=== PATIENT | female | born 1970 | race American Indian/Alaskan Native ===

== ENCOUNTER 2017-09-26 10:57 | Emergency (ER) | payer MEDICAID ==
[2017-09-26] MEDS ORDERED: TORADOL ONE (13:16)
[2017-09-26] MEDS ORDERED: TORADOL IM ONE (13:18)
[2017-09-26] MEDS ORDERED: NORCO 5/325 PO ONE (13:18)
[2017-09-26] MEDS ORDERED: CATAPRES PO ONE (13:21)
--- NOTE | 2017-09-26 13:27 | Emergency Department Report ---
HPI - General Chief Complaint: Shoulder Injury Time Seen by Provider: 09/26/17 12:55 - HPI HPI: The patient is a 47-year-old female presents for evaluation of bilateral shoulder pain. The patient reports bilateral shoulder pain for the past one week, tight and spasming in quality, moderate in severity, exacerbated with movement of the arms at the shoulder joints. She denies trauma to the shoulders, back, or neck, paresthesias, motor deficit, or other focal neurological deficit. ED Past Medical Hx - Past Medical History Hx Hypertension: Yes Hx CVA: Yes (1988) Hx Seizures: Yes Hx Psychiatric Treatment: Yes (anxiety) Hx Asthma: Yes - Surgical History Hx Cholecystectomy: Yes Additional Surgical History: BRAIN ANEURYSM. TUBAL LIGATION AND REVERSAL. PARTIAL HYSTERECTOMY - Social History Smoking Status: Never Smoker - Medications Home Medications: Home Medications Medication Instructions Recorded Confirmed Last Taken Type Gentamicin 0.3% Ophth Soln 1 drops OP Q4H #1 bottle 09/01/15 02/29/16 Unknown Rx HYDROcodone/APAP 5-325 [[place] 1 each PO Q6HR PRN #30 tablet 10/16/15 02/29/16 Unknown Rx 5/325] Mag Hydrox/Aluminum Hyd/Simeth 20 ml PO QID PRN #1 bottle 10/16/15 02/29/16 Unknown Rx [Maalox Advanced Suspension] Omeprazole [PriLOSEC] 40 mg PO QDAY #30 cap 10/16/15 02/29/16 Unknown Rx levETIRAcetam [Keppra TAB] 750 mg PO BID #60 tablet 10/16/15 02/29/16 Unknown Rx Aspirin [Aspirin BABY CHEW TAB] 81 mg PO QDAY tab.chew 03/02/16 Unknown Rx Atenolol [Tenormin] 25 mg PO DAILY #30 tab 08/11/16 Unknown Rx Cyclobenzaprine [Flexeril] 10 mg PO BID PRN #20 tablet 10/22/16 Unknown Rx Diclofenac Sodium 75 mg PO BID #20 tablet. 10/22/16 Unknown Rx Cyclobenzaprine HCl [Flexeril 5 MG 5 mg PO Q8HR PRN #15 tab 09/26/17 Unknown Rx TAB] traMADol [Ultram 50 MG tab] 50 mg PO Q6HR PRN #15 tablet 09/26/17 Unknown Rx ED Review of Systems ROS: Stated complaint: BILATERAL SHOULDER/ARM PAIN Other details as noted in HPI Constitutional: denies: fever ENT: denies: throat or neck pain Respiratory: denies: cough, shortness of breath Cardiovascular: denies: chest pain Endocrine: denies unexplained weight loss or gain Gastrointestinal: denies: abdominal pain, nausea Genitourinary: denies: dysuria Musculoskeletal: reports shoulder pain denies: leg swelling Skin: denies: rash Neurological: denies: headache Hematological/Lymphatic: denies: easy bleeding or easy bruising Psych: denies sadness or hopelessness Physical Exam - Physical Exam Vital Signs: Vital Signs 09/26/17 09/26/17 11:05 13:22 Temperature 98.1 F Pulse Rate 80 Respiratory 16 Rate Blood Pressure 152/103 Blood Pressure 184/118 [Right] O2 Sat by Pulse 96 Oximetry Physical Exam: General: well-nourished, well-developed, no acute distress Head: Normocephalic, atraumatic Eyes: normal sclera ENT: Mucous membranes are pink and moist Neck: trachea midline, neck supple, No neck stiffness, no cervical adenopathy Respiratory: Breath sounds equal bilaterally, no wheezing, rales, or rhonchi Cardio: S1 and S2 present, no murmurs, rubs, gallops, capillary refill is brisk Abdomen: Normoactive bowel sounds, soft abdomen, no tenderness Chest WALL/Back: Bilateral caudal medial trapezius and lower cervical paraspinal musculature TTP present, no midline cervical or thoracic spinous process tenderness, no spinous above findings deformity, no sensation or motor deficit in the arms or legs bilaterally, reflexes 2+ symmetric on DTR testing, distal pulses intact as well. Skin: No rash Neuro: no facial drooping, normal speech Psych: Normal affect ED Course Vital Signs 09/26/17 09/26/17 11:05 13:22 Temperature 98.1 F Pulse Rate 80 Respiratory 16 Rate Blood Pressure 152/103 Blood Pressure 184/118 [Right] O2 Sat by Pulse 96 Oximetry ED Medical Decision Making - Medical Decision Making The patient was seen and examined by myself. The patient is placed on a registered nurse cardiac telemetry and continuous pulse ox. On initial evaluation, the patient was found to be in no distress. Evaluation orders were placed. The patient is given pain medicine and antihypertensives. On reexamination the patient's blood pressure was found to decrease outside of range concerning for hypertensive emergency. The patient is stable for discharge with outpatient follow-up. The patient is given follow-up and return instructions. The patient expressed understanding and agreed with the plan. The patient is discharged in stable condition. Critical care attestation.: If time is entered above; I have spent that time in minutes in the direct care of this critically ill patient, excluding procedure time. ED Disposition Clinical Impression: Hypertensive urgency, Acute pain of both shoulders Disposition: TO HOME OR SELFCARE Is pt being admited?: No Does the pt Need Aspirin: No Condition: Stable Instructions: Muscle Strain (ED), Musculoskeletal Pain (ED), Hypertension (ED) Referrals: PRIMARY CARE, [Primary Care Provider] - 3-5 Days Time of Disposition: 13:23
[2017-09-26 14:46] VITALS: BP 137/94
== END 2017-09-26 14:55 | disposition home or self-care (01) ==
LOC: ED 10:57
DX: M25.511 Pain in right shoulder (principal); M25.512 Pain in left shoulder; I16.0 Hypertensive urgency; Z86.73 Personal history of transient ischemic attack (TIA), and cerebral infarction without residual deficits; R53.1 Weakness; F41.9 Anxiety disorder, unspecified; J45.909 Unspecified asthma, uncomplicated; Z88.8 Allergy status to other drugs, medicaments and biological substances
CPT/HCPCS: 96372; 99283; J1885

== ENCOUNTER 2017-11-04 12:04 | Emergency (ER) | payer MEDICAID ==
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
[2017-11-04] MEDS ORDERED: DELTASONE PO ONE (17:32)
[2017-11-04 17:58] VITALS: BP 156/102
== END 2017-11-04 17:58 | disposition home or self-care (01) ==
LOC: ED 12:04
DX: M54.16 Radiculopathy, lumbar region (principal); M62.830 Muscle spasm of back; M79.1 Myalgia; I10 Essential (primary) hypertension; J45.909 Unspecified asthma, uncomplicated
CPT/HCPCS: 99282; J7512

== ENCOUNTER 2019-02-08 22:03 | Emergency (ER) | payer MEDICAID ==
[2019-02-08] MEDS ORDERED: KEPPRA 1,000 MG/NS 0.75% 100ML 1,000 MG/100 ML BAG IV ONE ×2 (22:37→22:41)
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
[2019-02-08 23:08] LABS: Basophils % (Auto) 0.3 % (0.0-1.8); Eosinophils # (Auto) 0.1 K/mm3 (0.0-0.4); Eosinophils % (Auto) 1.3 % (0.0-4.3); Hematocrit 33.2 % (30.3-42.9); Hemoglobin 11.7 gm/dl (10.1-14.3); Lymphocytes # (Auto) 2.3 K/mm3 (1.2-5.4); Lymphocytes % (Auto) 32.2 % (13.4-35.0); Mean Corpuscular HGB Conc 35 % (30-34); Mean Corpuscular Volume 87 fl (79-97); Monocytes # (Auto) 0.6 K/mm3 (0.0-0.8); Monocytes % (Auto) 8.7 % (0.0-7.3); Platelet Count 257 K/mm3 (140-440); Red Blood Count 3.81 M/mm3 (3.65-5.03); Red Cell Distribution Width 13.6 % (13.2-15.2)
[2019-02-08] MEDS ORDERED: TORADOL IV ONE (23:38)
[2019-02-09 00:16] LABS: BUN/Creatinine Ratio 15; Blood Urea Nitrogen 12 mg/dL (7-17); Calcium 9.6 mg/dL (8.4-10.2); Hemolysis Index 3
[2019-02-09 01:31] LABS: Bilirubin,Urine NEG (Negative); Blood,Urine SM (Negative); Color,Urine Straw (Yellow); Protein,Urine <15 mg/dL mg/dL (Negative); Urobilinogen,Urine < 2.0 mg/dL (<2.0)
[2019-02-09 02:05] VITALS: BP 136/76
== END 2019-02-09 01:50 | disposition home or self-care (01) ==
LOC: ED 22:03
DX: G40.901 Epilepsy, unspecified, not intractable, with status epilepticus (principal); R55 Syncope and collapse; I10 Essential (primary) hypertension; J45.909 Unspecified asthma, uncomplicated; Z86.73 Personal history of transient ischemic attack (TIA), and cerebral infarction without residual deficits; Z90.49 Acquired absence of other specified parts of digestive tract; Z91.018 Allergy to other foods; Z98.51 Tubal ligation status; Z90.711 Acquired absence of uterus with remaining cervical stump; Z79.82 Long term (current) use of aspirin; Z79.899 Other long term (current) drug therapy
CPT/HCPCS: 36415; 80048; 81001; 83735; 85025; 96365; 96375; 99284; J1885; J1953

== ENCOUNTER 2019-09-22 20:18 | Emergency (ER) | payer MEDICAID ==
[2019-09-22 20:25] VITALS: BP 163/81
[2019-09-22] MEDS ORDERED: predniSONE 20 MG TAB PO ONE (22:36)
[2019-09-22] MEDS ORDERED: IBUPROFEN 600 MG TAB PO ONE ×2 (22:36→22:40)
[2019-09-22] MEDS ORDERED: predniSONE 20 MG TAB ONE (22:40)
--- NOTE | 2019-09-22 22:40 | Emergency Department Report ---
ED Extremity Problem HPI - General Chief complaint: Extremity Problem,Nontraumatic Stated complaint: KNEE/HAND PAIN Source: patient Mode of arrival: Ambulatory Limitations: No Limitations - History of Present Illness Initial comments: Patient is a 49 yo AA female with a h/o chronic seizures, chronic low back pain with sciatica and HTN, chronic osteoarthritis who presents to the ED with acute onset persistent severe right wrist pain and swelling for the last 2 days after heavy lifting at work. Patient also c/o right hand tingling sensations. Patient denies fall, nausea, vomiting, dizziness, chest pain, neck pain, low back pain or cough. Patient states that she performs heavy lifting at work routinely. MD Complaint: extremity pain (right wrist pain), extremity swelling (right wrist pain), joint paint (right wrist) -: Sudden, days(s) (2) Location: right, upper extremity (wrist) History of Same: No -: Yes arthralgia (right wrist) Radiation: distal Severity scale (0 -10): 8 Quality: aching, sharp Consistency: constant Improves with: nothing Worsens with: weight bearing, walking, exertion, palpation Associated Symptoms: denies other symptoms - Related Data Previous Rx's Medication Instructions Recorded Last Taken Type Mag Hydrox/Aluminum Hyd/Simeth 20 ml PO QID PRN #1 bottle 10/16/15 Unknown Rx [Maalox Advanced Suspension] Omeprazole [PriLOSEC] 40 mg PO QDAY #30 cap 10/16/15 Unknown Rx Aspirin [Aspirin BABY CHEW TAB] 81 mg PO QDAY tab.chew 03/02/16 02/05/19 Rx atenoloL [Tenormin] 25 mg PO DAILY #30 tab 08/11/16 Unknown Rx Cyclobenzaprine [Flexeril] 10 mg PO BID PRN #20 tablet 10/22/16 Unknown Rx Diclofenac Sodium 75 mg PO BID #20 tablet. 10/22/16 Unknown Rx traMADoL [Ultram 50 MG tab] 50 mg PO Q6HR PRN #15 tablet 09/26/[address] (Nf) 50 mg PO BID #30 tablet. 11/04/17 Unknown Rx Tizanidine HCl [Zanaflex] 2 mg PO TID PRN #30 capsule 11/04/17 Unknown Rx levETIRAcetam [Keppra TAB] 750 mg PO BID #60 tablet 02/09/19 Unknown Rx Acetaminophen/Codeine [Tylenol 1 tab PO Q6H PRN #12 tab 09/22/19 Unknown Rx /Codeine # 3 tab] predniSONE [Deltasone] 40 mg PO QDAY #10 tab 09/22/19 Unknown Rx tiZANidine [Zanaflex 4mg TAB] 4 mg PO Q8H PRN #21 tablet 09/22/19 Unknown Rx Allergies Allergy/AdvReac Type Severity Reaction Status Date / Time onion Allergy Itching Verified 02/09/19 01:33 orange Allergy Itching Verified 02/09/19 01:33 phenobarbital Allergy Hives Verified 09/01/15 13:06 tomato Allergy Itching Verified 02/09/19 01:33 metronidazole [From Flagyl] AdvReac "HARE Verified 09/01/15 13:06 STOMACH" ED Review of Systems ROS: Stated complaint: KNEE/HAND PAIN Other details as noted in HPI Constitutional: denies: chills, fever Eyes: denies: eye pain, eye discharge, vision change ENT: denies: ear pain, throat pain Respiratory: denies: cough, shortness of breath, wheezing Cardiovascular: denies: chest pain, palpitations Endocrine: no symptoms reported Gastrointestinal: denies: abdominal pain, nausea, diarrhea Genitourinary: denies: urgency, dysuria, discharge Musculoskeletal: joint swelling (right wrist), arthralgia (right wrist pain). denies: back pain Skin: denies: rash, lesions Neurological: denies: headache, weakness, paresthesias Psychiatric: denies: anxiety, depression Hematological/Lymphatic: denies: easy bleeding, easy bruising ED Past Medical Hx - Past Medical History Previous Medical History?: Yes Hx Hypertension: Yes Hx CVA: Yes (1988) Hx Seizures: Yes Hx Psychiatric Treatment: Yes (anxiety) Hx Asthma: Yes - Surgical History Past Surgical History?: Yes Hx Cholecystectomy: Yes Additional Surgical History: BRAIN ANEURYSM. TUBAL LIGATION AND REVERSAL. PARTIAL HYSTERECTOMY - Social History Smoking Status: Never Smoker Substance Use Type: None - Medications Home Medications: Home Medications Medication Instructions Recorded Confirmed Last Taken Type Mag Hydrox/Aluminum Hyd/Simeth 20 ml PO QID PRN #1 bottle 10/16/15 02/29/16 Unknown Rx [Maalox Advanced Suspension] Omeprazole [PriLOSEC] 40 mg PO QDAY #30 cap 10/16/15 02/29/16 Unknown Rx Aspirin [Aspirin BABY CHEW TAB] 81 mg PO QDAY tab.chew 03/02/16 02/05/19 Rx atenoloL [Tenormin] 25 mg PO DAILY #30 tab 08/11/16 Unknown Rx Cyclobenzaprine [Flexeril] 10 mg PO BID PRN #20 tablet 10/22/16 Unknown Rx Diclofenac Sodium 75 mg PO BID #20 tablet. 10/22/16 Unknown Rx traMADoL [Ultram 50 MG tab] 50 mg PO Q6HR PRN #15 tablet 09/26/[address] (Nf) 50 mg PO BID #30 tablet. 11/04/17 Unknown Rx Tizanidine HCl [Zanaflex] 2 mg PO TID PRN #30 capsule 11/04/17 Unknown Rx levETIRAcetam [Keppra TAB] 750 mg PO BID #60 tablet 02/09/19 Unknown Rx Acetaminophen/Codeine [Tylenol 1 tab PO Q6H PRN #12 tab 09/22/19 Unknown Rx /Codeine # 3 tab] predniSONE [Deltasone] 40 mg PO QDAY #10 tab 09/22/19 Unknown Rx tiZANidine [Zanaflex 4mg TAB] 4 mg PO Q8H PRN #21 tablet 09/22/19 Unknown Rx ED Physical Exam - General Limitations: No Limitations General appearance: alert, in no apparent distress - Head Head exam: Present: atraumatic, normocephalic, normal inspection - Eye Eye exam: Present: normal appearance, PERRL, EOMI Pupils: Present: normal accommodation - ENT ENT exam: Present: normal exam, normal orophraynx, mucous membranes moist, TM's normal bilaterally, normal external ear exam - Neck Neck exam: Present: normal inspection, full ROM. Absent: tenderness - Respiratory Respiratory exam: Present: normal lung sounds bilaterally. Absent: respiratory distress, wheezes, chest wall tenderness, accessory muscle use - Cardiovascular Cardiovascular Exam: Present: regular rate, normal rhythm, normal heart sounds. Absent: systolic murmur, diastolic murmur, rubs, gallop - GI/Abdominal GI/Abdominal exam: Present: soft, normal bowel sounds. Absent: tenderness, guarding, hyperactive bowel sounds, hypoactive bowel sounds - Extremities Exam Extremities exam: Present: normal inspection, full ROM, tenderness (Plapable right wrist tenderness with mild swelling and limited ROM due to pain), normal capillary refill, joint swelling (right wrist ) - Back Exam Back exam: Present: normal inspection, full ROM. Absent: tenderness, CVA tenderness (R), muscle spasm, paraspinal tenderness, vertebral tenderness - Neurological Exam Neurological exam: Present: alert, oriented X3, CN II-XII intact, normal gait, reflexes normal - Psychiatric Psychiatric exam: Present: normal affect, normal mood - Skin Skin exam: Present: warm, dry, intact, normal color. Absent: rash ED Course Vital Signs 09/22/19 20:24 Temperature 97.8 F Pulse Rate 75 Respiratory 14 Rate Blood Pressure 163/81 O2 Sat by Pulse 96 Oximetry ED Medical Decision Making - Medical Decision Making This is a 49-year-old female presented to the ED with acute onset persistent severe right wrist joint pain and swelling. In the ED, patient is alert and oriented 3 and is not in distress. Based on the history and physical exam findings this patient's symptoms are likely due to acute tendinitis or muscle strain from heavy lifting at work. Patient was treated for pain in the ED and had right wrist joint splinted with a Velcro splint. On reevaluation, patient's friends will control medications. Patient was sent home on pain medications and advised to follow-up with her primary care physician in 5-7 days for reevaluation or return to the ED immediately if symptoms get worse. - Differential Diagnosis Muscle strain; tendonitis; carpal tunnel syndrome Critical care attestation.: If time is entered above; I have spent that time in minutes in the direct care of this critically ill patient, excluding procedure time. ED Disposition Clinical Impression: Tendinitis of right wrist Muscle strain of right wrist Qualifiers: Encounter type: initial encounter Qualified Code(s): S66.911A - Strain of unspecified muscle, fascia and tendon at wrist and hand level, right hand, initial encounter Disposition: TO HOME OR SELFCARE Is pt being admited?: No Does the pt Need Aspirin: No Condition: Stable Instructions: Muscle Strain (ED) Additional Instructions: Take medications with food, drink plenty of lfuids and follow up with your Primary Care Physician in 7-10 days for reevaluation. Return to the ED immediately if symptoms get worse. Prescriptions: predniSONE [Deltasone] 40 mg PO QDAY #10 tab Acetaminophen/Codeine [Tylenol /Codeine # 3 tab] 1 tab PO Q6H PRN #12 tab PRN Reason: Pain , Severe (7-10) tiZANidine [Zanaflex 4mg TAB] 4 mg PO Q8H PRN #21 tablet PRN Reason: Muscle Spasm Referrals: [facility] [Outside] - 3-5 Days Time of Disposition: 22:42 Print Language: DJIBOUTIAN
== END 2019-09-22 21:00 | disposition home or self-care (01) ==
LOC: ED 20:18
DX: S66.911A Strain of unspecified muscle, fascia and tendon at wrist and hand level, right hand, initial encounter (principal); M77.9 Enthesopathy, unspecified; M25.569 Pain in unspecified knee; I10 Essential (primary) hypertension; Z86.73 Personal history of transient ischemic attack (TIA), and cerebral infarction without residual deficits; Z90.49 Acquired absence of other specified parts of digestive tract; Z98.890 Other specified postprocedural states; Z90.710 Acquired absence of both cervix and uterus; Z79.899 Other long term (current) drug therapy; Z98.51 Tubal ligation status; Z91.018 Allergy to other foods; Z88.8 Allergy status to other drugs, medicaments and biological substances; X58.XXXA Exposure to other specified factors, initial encounter; Y93.89 Activity, other specified; Y92.89 Other specified places as the place of occurrence of the external cause; Y99.8 Other external cause status
CPT/HCPCS: 29125; 99283; J7512

== ENCOUNTER 2021-03-29 20:10 | Emergency (ER) | payer SELFPAY ==
[2021-03-29 23:36] VITALS: BP 151/92
== END 2021-03-30 00:53 | disposition home or self-care (01) ==
LOC: ED 20:10
DX: S52.122A Displaced fracture of head of left radius, initial encounter for closed fracture (principal); S43.402A Unspecified sprain of left shoulder joint, initial encounter; I10 Essential (primary) hypertension; F41.9 Anxiety disorder, unspecified; J45.909 Unspecified asthma, uncomplicated; Z90.49 Acquired absence of other specified parts of digestive tract; Z79.899 Other long term (current) drug therapy; Z91.018 Allergy to other foods; Z88.8 Allergy status to other drugs, medicaments and biological substances; Z86.69 Personal history of other diseases of the nervous system and sense organs; Z86.73 Personal history of transient ischemic attack (TIA), and cerebral infarction without residual deficits; Z90.710 Acquired absence of both cervix and uterus; Y04.8XXA Assault by other bodily force, initial encounter; Y93.89 Activity, other specified; Y92.89 Other specified places as the place of occurrence of the external cause; Y99.0 Civilian activity done for income or pay
CPT/HCPCS: Q0162

== ENCOUNTER 2021-04-01 11:55 | Emergency (ER) | payer SELFPAY ==
[2021-04-01 12:49] VITALS: BP 173/102
[2021-04-01] MEDS ORDERED: KETOROLAC 10 MG TAB PO ONE (12:56)
--- NOTE | 2021-04-01 13:02 | Emergency Department Report ---
ED General Adult HPI - General Chief complaint: Extremity Injury, Upper Stated complaint: MOBILIZER TOO TIGHT Time Seen by Provider: 04/01/21 12:55 Source: patient Mode of arrival: Ambulatory Limitations: No Limitations - History of Present Illness Initial comments: 51-year-old -[place] female patient presents with complaints of pain with her left arm splint. Patient was seen here 03/29/2021 and diagnosed with a radial head fracture. She reports the splint in place feels tight and is pinching her arm. She denies any new swelling, loss of sensation in there arm or hand, or difficulty moving her hand. Patient states the ibuprofen prescribed is not helping. She has not followed up with the 4 h youth development specialist as of yet -: Sudden - Related Data Previous Rx's Medication Instructions Recorded Last Taken Type Mag Hydrox/Aluminum Hyd/Simeth 20 ml PO QID PRN #1 bottle 10/16/15 Unknown Rx [Maalox Advanced Suspension] Omeprazole [PriLOSEC] 40 mg PO QDAY #30 cap 10/16/15 Unknown Rx Aspirin [Aspirin BABY CHEW TAB] 81 mg PO QDAY tab.chew 03/02/16 02/05/19 Rx atenoloL [Tenormin] 25 mg PO DAILY #30 tab 08/11/16 Unknown Rx Cyclobenzaprine [Flexeril] 10 mg PO BID PRN #20 tablet 10/22/16 Unknown Rx Diclofenac Sodium 75 mg PO BID #20 tablet. 10/22/16 Unknown Rx traMADoL [Ultram 50 MG tab] 50 mg PO Q6HR PRN #15 tablet 09/26/[address] (Nf) 50 mg PO BID #30 tablet. 11/04/17 Unknown Rx Tizanidine HCl [Zanaflex] 2 mg PO TID PRN #30 capsule 11/04/17 Unknown Rx levETIRAcetam [Keppra TAB] 750 mg PO BID #60 tablet 02/09/19 Unknown Rx Acetaminophen/Codeine [Tylenol 1 tab PO Q6H PRN #12 tab 09/22/19 Unknown Rx /Codeine # 3 tab] predniSONE [Deltasone] 40 mg PO QDAY #10 tab 09/22/19 Unknown Rx tiZANidine [Zanaflex 4mg TAB] 4 mg PO Q8H PRN #21 tablet 09/22/19 Unknown Rx HYDROcodone/APAP 5-325 [[place] 1 each PO Q6HR PRN #12 tablet 03/29/21 Unknown Rx 5/325] Ibuprofen [Motrin] 800 mg PO Q8HR PRN #30 tablet 03/29/21 Unknown Rx Naproxen 500 mg PO BID PRN #20 tablet 04/01/21 Unknown Rx traMADoL [Ultram 50 MG tab] 50 mg PO Q8HR PRN #15 tablet 04/01/21 Unknown Rx Allergies Allergy/AdvReac Type Severity Reaction Status Date / Time onion Allergy Itching Verified 02/09/19 01:33 orange Allergy Itching Verified 02/09/19 01:33 phenobarbital Allergy Hives Verified 09/01/15 13:06 tomato Allergy Itching Verified 02/09/19 01:33 metronidazole [From Flagyl] AdvReac "HARE Verified 09/01/15 13:06 STOMACH" ED Review of Systems ROS: Stated complaint: MOBILIZER TOO TIGHT Other details as noted in HPI Musculoskeletal: arthralgia Skin: denies: change in color Neurological: denies: numbness, paresthesias ED Past Medical Hx - Past Medical History Previous Medical History?: Yes Hx Hypertension: Yes Hx CVA: Yes (1988) Hx Seizures: Yes Hx Psychiatric Treatment: Yes (anxiety) Hx Asthma: Yes - Surgical History Past Surgical History?: Yes Hx Cholecystectomy: Yes Additional Surgical History: BRAIN ANEURYSM. TUBAL LIGATION AND REVERSAL. PARTIAL HYSTERECTOMY - Social History Smoking Status: Never Smoker Substance Use Type: None - Medications Home Medications: Home Medications Medication Instructions Recorded Confirmed Last Taken Type Mag Hydrox/Aluminum Hyd/Simeth 20 ml PO QID PRN #1 bottle 10/16/15 02/29/16 Unknown Rx [Maalox Advanced Suspension] Omeprazole [PriLOSEC] 40 mg PO QDAY #30 cap 10/16/15 02/29/16 Unknown Rx Aspirin [Aspirin BABY CHEW TAB] 81 mg PO QDAY tab.chew 03/02/16 02/05/19 Rx atenoloL [Tenormin] 25 mg PO DAILY #30 tab 08/11/16 Unknown Rx Cyclobenzaprine [Flexeril] 10 mg PO BID PRN #20 tablet 10/22/16 Unknown Rx Diclofenac Sodium 75 mg PO BID #20 tablet 10/22/16 Unknown Rx traMADoL [Ultram 50 MG tab] 50 mg PO Q6HR PRN #15 tablet 09/26/[address] (Nf) 50 mg PO BID #30 tablet.dr 11/04/17 Unknown Rx Tizanidine HCl [Zanaflex] 2 mg PO TID PRN #30 capsule 11/04/17 Unknown Rx levETIRAcetam [Keppra TAB] 750 mg PO BID #60 tablet 02/09/19 Unknown Rx Acetaminophen/Codeine [Tylenol 1 tab PO Q6H PRN #12 tab 09/22/19 Unknown Rx /Codeine # 3 tab] predniSONE [Deltasone] 40 mg PO QDAY #10 tab 09/22/19 Unknown Rx tiZANidine [Zanaflex 4mg TAB] 4 mg PO Q8H PRN #21 tablet 09/22/19 Unknown Rx HYDROcodone/APAP 5-325 [[place] 1 each PO Q6HR PRN #12 tablet 03/29/21 Unknown Rx 5/325] Ibuprofen [Motrin] 800 mg PO Q8HR PRN #30 tablet 03/29/21 Unknown Rx Naproxen 500 mg PO BID PRN #20 tablet 04/01/21 Unknown Rx traMADoL [Ultram 50 MG tab] 50 mg PO Q8HR PRN #15 tablet 04/01/21 Unknown Rx ED Physical Exam - General Limitations: No Limitations General appearance: alert, in no apparent distress - Head Head exam: Present: atraumatic, normocephalic - Eye Eye exam: Present: normal appearance. Absent: scleral icterus - Respiratory Respiratory exam: Absent: respiratory distress - Cardiovascular Cardiovascular Exam: Present: regular rate - Expanded Upper Extremity Exam Left Elbow exam: Present: tenderness Forearm Wrist exam: Present: normal inspection, full ROM. Absent: swelling Hand Wrist exam: Present: normal inspection, full ROM Vascular: Absent: pulse deficit radial art, pulse deficit ulnar art - Neurological Exam Neurological exam: Present: alert, oriented X3 - Psychiatric Psychiatric exam: Present: normal affect - Skin Skin exam: Present: warm, dry, intact, normal color. Absent: rash, diaphoretic, erythema, pallor, ecchymosis ED Course Vital Signs 04/01/21 04/01/21 12:47 13:50 Temperature 98.5 F Pulse Rate 81 Respiratory 16 16 Rate Blood Pressure 173/102 O2 Sat by Pulse 96 Oximetry ED Medical Decision Making - Medical Decision Making 51-year-old -[place] female patient presents with complaints of pain with her left arm splint. Patient was seen here 03/29/2021 and diagnosed with a radial head fracture. She reports the splint in place feels tight and is pinching her arm. She denies any new swelling, loss of sensation in there arm or hand, or difficulty moving her hand. Patient states the ibuprofen prescribed is not helping. She has not followed up with the 4 h youth development specialist as of yet No signs of compartment syndrome or other complications noted now. Caleb wrap removed from splint patient states the pain she was experiencing was relieved with this. Caleb wrap replaced. Patient's denies any further pain. She is well- appearing and stable for discharge home. Blood pressure noted to be somewhat elevated, however patient does have hypertension and states compliance with her BP medications. She is to follow-up with her primary care doctor. Strict return precautions were discussed in detail with patient who verbalizes understanding. Critical care attestation.: If time is entered above; I have spent that time in minutes in the direct care of this critically ill patient, excluding procedure time. ED Disposition Clinical Impression: Arm pain Disposition: 01 HOME / SELF CARE / HOMELESS Is pt being admited?: No Instructions: Cast or Splint Care, Adult Prescriptions: Naproxen 500 mg PO BID PRN #20 tablet PRN Reason: pain traMADoL [Ultram 50 MG tab] 50 mg PO Q8HR PRN #15 tablet PRN Reason: Pain , Severe (7-10) [facility] [Provider Group] - 3-5 Days CHUCK CHAMBERS MD [Staff Physician] - 3-5 Days
== END 2021-04-01 14:50 | disposition home or self-care (01) ==
LOC: ED 11:55
DX: M79.602 Pain in left arm (principal); I10 Essential (primary) hypertension; J45.909 Unspecified asthma, uncomplicated; Z90.49 Acquired absence of other specified parts of digestive tract; Z98.51 Tubal ligation status; Z90.710 Acquired absence of both cervix and uterus; Z98.890 Other specified postprocedural states; Z79.899 Other long term (current) drug therapy; Z91.018 Allergy to other foods; Z88.8 Allergy status to other drugs, medicaments and biological substances; Z79.82 Long term (current) use of aspirin
CPT/HCPCS: 99282